=== PATIENT | male | born 1955 | race Caucasian/White ===

== ENCOUNTER → 2025-04-06 | Outpatient (CLI) | payer MEDICARE ==
--- NOTE | 2025-04-06 15:25 | HMCIMG ---
CT MAXILLOFACIAL W/O CONTRAST Indication: Other chronic sinusitis Technique: Multiple thin section axial images were performed through the face and paranasal sinuses. Coronal reconstructions were performed in soft tissue and bone windows, as well as sagittal reconstructions. CT Dose Index (CTDI): 22.11 mGy Dose Length Product (DLP): 450.8 total mGy Findings: Paranasal sinuses are unremarkable. There is no evidence of facial fracture. Visualized soft tissues are unremarkable. Visualized intracranial contents are unremarkable. Impression: No acute abnormality of the face. No evidence of acute or chronic sinusitis. This study was performed using dose reduction techniques to include automated exposure control and/or adjustment of the mA and/or kV according to patient size.
== END | disposition home or self-care (01) ==
LOC: RAH 14:50
PROVIDERS: ATTEND Internal Medicine Clinical Cardiac Electrophysiology
DX: J32.8 Other chronic sinusitis (principal)
CPT/HCPCS: 70486